=== PATIENT | female | born 1945 | race Caucasian/White ===

== ENCOUNTER 2017-05-28 07:39 | Day surgery (SDC) | payer MEDICARE, BC ==
[~2017-05-28 07:39] MED LIST: Buffered Lidocaine 0.9% SYRIN* 5 ML/SYR SYRINGE INTRADERM ONE; Famotidine IV* 10 MG/ML 2 ML (20 mg) IV ONE; Metoclopramide TAB* 10 MG PO ONE
[2017-05-28] MEDS ORDERED: Metoclopramide TAB* 10 MG ONE (08:03)
[2017-05-28] MEDS ORDERED: ceFAZolin 2 GM in NS PREMIX(*) 2 GM/100 ML BAG IVPB ONE (08:04)
[2017-05-28] MEDS ORDERED: Famotidine IV* 10 MG/ML 2 ML (20 mg) ONE (08:04)
[2017-05-28] MEDS ORDERED: Midazolam* 1 MG/ML 2 ML VIAL (2 MG) ONE (08:06)
[2017-05-28] MEDS ORDERED: Ondansetron INJ* 2 MG/ML VIAL ONE (08:06)
[2017-05-28] MEDS ORDERED: Lidocaine 2% PF * 5 ML VIAL ONE (08:06)
[2017-05-28] MEDS ORDERED: Propofol* 10 MG/ML 20 ML BTL IV PUSH ONE (08:06)
[2017-05-28] MEDS ORDERED: KETAMINE HCL* 50 MG/ML 10 ML VIAL ONE (08:06)
[2017-05-28] MEDS ORDERED: Dexamethasone IV* 4 MG/ML 1 ML (4 MG) ONE (08:06)
[2017-05-28] MEDS ORDERED: Ketorolac INJ* 30 MG/ML 1 ML VIAL ONE (08:06)
[2017-05-28] MEDS ORDERED: fentaNYL* 50 MCG/ML 2 ML VIAL (100 MCG VIAL) ONE (08:06)
[2017-05-28] MEDS ORDERED: Bupivacaine 0.25% SDV* 30 ML ONE (08:35)
[2017-05-28] MEDS ORDERED: EPHEDrine (Pressors)* 50 MG/ML VIAL ONE (09:10)
[2017-05-28] MEDS ORDERED: fentaNYL* 50 MCG/ML 2 ML VIAL (100 MCG VIAL) IV PRN (09:46)
[2017-05-28] MEDS ORDERED: oxyCODONE/Acetamin 5/325 MG* TAB PO PRN (09:46)
[2017-05-28] MEDS ORDERED: Naloxone* 0.4 MG/ML 1 ML VIAL IV PRN (09:46)
[2017-05-28] MEDS ORDERED: Ondansetron INJ* 2 MG/ML VIAL IV PRN (09:46)
[2017-05-28 11:44] VITALS: BP 126/63
--- NOTE | 2017-05-29 00:56 | OP ---
DATE OF OPERATION: 05/28/17 - [facility] DATE OF : 47 SURGEON: Vidal Lawson MD. ANODIC TREATER: KUSH Felipe. An field technical assistant was needed for the entirety of the procedure to aid in positioning of the arm and retraction. ANESTHESIOLOGIST: Dr. Jones. ANESTHESIA: General. PRE-OPERATIVE DIAGNOSES: 1. 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 2. Right trigger thumb. 3. Right ring trigger finger. POST-OPERATIVE DIAGNOSES: 1. Right thumb stage 3 base degenerative arthritis. 2. Right trigger thumb. 3. Right ring trigger finger. OPERATIVE PROCEDURE: 1. Right thumb carpometacarpal arthroplasty with distally based split flexor carpi radialis tendon transfer for thumb suspension. 2. Right trigger thumb release. 3. Right ring trigger finger release. INDICATIONS: Swapna has severe basal joint arthritis radiographically and clinically. She is also having a very severe right trigger thumb and more recently has developed right ring trigger finger. We had talked about treatment options. She had the trigger thumb injected and then it came back. She wanted to proceed with surgery. ESTIMATED BLOOD LOSS: 2 mL. COMPLICATIONS: None. FINDINGS: As expected. DESCRIPTION OF PROCEDURE: Swapna was seen in the preoperative holding area. The correct side, site and procedure were identified. We came back to the operating room where the arm was prepped and draped in the usual fashion. A time-out was performed. I began by exsanguinating the arm, the Esmarch and the tourniquet was inflated to 250 mmHg. A 1.5 cm transverse incision was made in the right thumb MCP joint flexion crease. Dissection was carried down and full thickness flaps were raised off the tendon sheath. I used a 15 blade to longitudinally incise the sheath in line with the tendon. The release was completed distally and proximally with the tenotomy scissors until there was absolutely no compression on the nerve and there was no more triggering. I irrigated out the wound and the skin was closed with 4-0 nylon suture. I then made a 1 cm longitudinal incision over the A1 brando area of the right ring finger. Again, full thickness flaps were raised right off the tendon sheath. The sheath was opened longitudinally with a 15-blade and this was extended distally and proximally with the tenotomy scissors. Once the A1 brando was released in its entirety and there was no more compression on the tendon, I irrigated out the wound and the skin was closed with 4-0 nylon suture. I then made a 2 to 3 cm incision over the dorsal radial thumb base just dorsal to the first dorsal compartment tendons. Dissection was carried down longitudinally and the radial artery was mobilized and retracted out of the way. The venous plexus was then cauterized. I longitudinally raised the capsular and subperiosteal flaps to expose the CMC joint, the scaphotrapezial joint, and the trapeziotrapezoid joints. A kotzebue blade was used to circumferentially release the soft tissue off the bone. I then used a rongeur to excise the trapezium and the associated osteophytes in their entirety. The FCR tendon was identified and protected in the base of the wound. I then raised the periosteum off the dorsal radial thumb metacarpal base. Two sequentially larger drill bits were used to drill from the dorsal radial metacarpal base out the volar ulnar aspect of the articular surface. I then made a 1 cm transverse incision just proximal to the wrist flexion crease. The FCR tendon sheath was opened and the tendon was delivered up into the wound and was split longitudinally with a 15-blade and a 26-gauge wire was passed into the split. I then released the sheath and then made two more proximal transverse incisions each sequentially more proximal than the other. The FCR sheath was released in its entirety. I then passed a 26-gauge wire under the skin to complete the split of the tendon and release it at its musculotendinous junction. The splint end of the FCR tendon was then sewn together at its tail to prevent any fraying. It was then delivered down into the thumb base wound using two 26-gauge wires to shuttle the end of the tendon down into that wound. The split was completed with tenotomy scissors down to the base of the second metacarpal. I used a wire to deliver the tendon through the drill hole and then around the intact limb of the FCR. Appropriate tension was set and the tendon transfer was secured with 1 [id number] 3-0 Ethibond suture followed by 2 [id number] 3-0 Ethibond sutures, which sewed intact limb to intact limb only. The thumb was nicely suspended. The scaphotrapezoid joint had been inspected and was free of severe arthritis. The remainder of the split end of the FCR tendon was rolled up into a ball and the ball was secured with 3-0 Ethibond suture. This was docked as an interposition between the base of the metacarpal and the distal pole of the scaphoid. The capsule was closed with 3-0 Ethibond suture. The skin was closed and all the incisions with 4-0 nylon suture. All of the incisions were infiltrated with 0.25% plain Marcaine. The wounds were dressed with Xeroform, 4x4's, sterile Webril, and a thumb spica splint was applied. The tourniquet was deflated and the patient was taken to the recovery room in stable condition. [id number] #: [id number] MTDD
== END 2017-05-28 12:00 | disposition home or self-care (01) ==
LOC: OREAST 07:39
PROVIDERS: ATTEND Orthopaedic Surgery Hand Surgery
DX: M18.0 Bilateral primary osteoarthritis of first carpometacarpal joints (principal); M65.311 Trigger thumb, right thumb; M65.341 Trigger finger, right ring finger
CPT/HCPCS: A9270-GY; J0690; J1100; J1885; J2250; J2405; J2704; J3010

== ENCOUNTER → 2018-04-19 11:59 | Day surgery (SDC) | payer MEDICARE, OTHER ==
[~2018-04-19 11:59] MED LIST changes: +Bupivacaine 0.25% SDV PF* 10 ML VIAL INJ ONE; -Famotidine IV* 10 MG/ML 2 ML (20 mg) IV ONE; +Lactated Ringers 1000 ML Bag* 1,000 ML IV SCH; +Lidocain 1% EPI 1:100,000 * 30 ML MDV ONE; +Lidocaine 2% PF * 5 ML VIAL ONE; -Metoclopramide TAB* 10 MG PO ONE; +Propofol* 10 MG/ML 20 ML BTL ONE; +fentaNYL* 50 MCG/ML 2 ML VIAL (100 MCG VIAL) ONE
[2018-04-19 14:28] VITALS: BP 130/91
--- NOTE | 2018-04-19 19:39 | OP ---
DATE OF OPERATION: 04/19/18 - [facility] DATE OF : 47 SURGEON: Vidal Lawson MD SHEET CATCHER: KUSH Felipe ANESTHESIOLOGIST: Dr. Noyola ANESTHESIA: Local MAC PRE-OP DIAGNOSES: 1. Left trigger thumb. 2. Left middle trigger finger. 3. Left ring trigger finger. POST-OP DIAGNOSIS: 1. Left trigger thumb. 2. Left middle trigger finger. 3. Left ring trigger finger. OPERATIVE PROCEDURE: 1. Left trigger thumb release with A1 brando. 2. Left middle trigger release with A1 brando. 3. Left ring trigger finger with use of A1 brando. INDICATIONS: Swapna has the aforementioned trigger fingers. The middle and the thumb are quite chronic. The ring has been a problem off and on for years as well. Initially, we had planned to do just the middle and the thumb, but now the ring is bothering her more, so we decided to do that one as well. We discussed risks and benefits and she wants to proceed with surgery. ESTIMATED BLOOD LOSS: 2 mL. COMPLICATIONS: None. FINDINGS: See above and below. DESCRIPTION OF PROCEDURE: Swapna was seen in the preoperative holding area. The correct side, site and procedure were identified. We came back to the operating room where she got some anesthesia, and then I infiltrated the operative area with 0.25% plain Marcaine. The arm was then prepped and draped in the usual fashion and time-out was performed. The arm was exsanguinated with the Esmarch and the tourniquet was inflated to 250 mmHg. I began by making a transverse incision in the MP joint flexion crease of the left thumb. Dissection was carried down and the radial digital nerves were retracted with a Ragnell retractors. I then used the 15 blade to incise the A1 brando longitudinally in line with the tendon. It was extremely thickened. The release was completed distally and proximally with the tenotomy scissors. It had the appearance that the tendon had not moved in quite some time but it was moving nicely after the release was performed. We then made a transverse incision in the distal palmar crease over the middle and ring fingers. Dissection was carried down. The neurovascular bundles were preserved. The palmar fascia was released and the A1 pulleys of the middle and ring fingers were exposed. I first went to the middle finger and incised the A1 brando longitudinally along the radial third in line with the tendons. The release was completed distally and proximally. I then placed Ragnell retractors and protected the digital nerves while I released the A1 brando of the ring finger in line with the tendon, begin along the radial third. The release was completed distally and proximally with a tenotomy scissors. Once I had completed the release and everything was looking good, we irrigated out the wound. The wounds were closed with 4-0 nylon suture , soft dressings were applied. Tourniquet was deflated. The fingers all pinked up immediately. She was taken to the recovery room in stable condition. [id number]/CPS #: [id number] MTDD
== END | disposition home or self-care (01) ==
LOC: OR 11:59
PROVIDERS: ATTEND Orthopaedic Surgery Hand Surgery
DX: M65.312 Trigger thumb, left thumb (principal); M65.332 Trigger finger, left middle finger; M65.342 Trigger finger, left ring finger; I10 Essential (primary) hypertension; E11.9 Type 2 diabetes mellitus without complications; Z79.84 Long term (current) use of oral hypoglycemic drugs; E78.5 Hyperlipidemia, unspecified; M19.90 Unspecified osteoarthritis, unspecified site
CPT/HCPCS: J2704; J3010; J3490